=== PATIENT | female | born 1965 | race Caucasian/White ===

== ENCOUNTER 2018-06-20 08:41 | Outpatient (CLI) | payer OTHER ==
--- NOTE | 2018-06-20 09:54 | MRI ---
MRI Lumbar Spine Noncontrast: HISTORY: Pain COMPARISON: 06/25/2015 FINDINGS: Conus medullaris is normal in morphology and terminates at the L1 level. There is multilevel mild bilateral degenerative facet hypertrophy. L1-2:Mild disc bulge without significant stenosis L2-3:Broad-based disc bulge with mild narrowing of central canal. Neural foramina are patent L3-4:Mild central canal stenosis due to broad-based disc osteophyte. Mild bilateral neural foraminal narrowing L4-5:Moderate central canal stenosis due to broad-based disc osteophyte, and asymmetric prominence of the left ligamentum flavum. This produces impingement of the traversing left L5 nerve root. Mild right and moderate left neural foraminal narrowing L5-S1:Large disc protrusion of the left foramina through right subarticular zone is present with mode rate stenosis of the terminal thecal sac as well as impingement of the traversing left S1 nerve root and crowding of the traversing right S1 nerve root. There is [id number] right and moderate left neural foraminal stenosis which does result in mass effect upon the left L5 nerve root. IMPRESSION: Multilevel degenerative change throughout the lumbar spine, which is most pronounced at L5-S1 due to a large disc protrusion. Transcribed Date/Time: 06/20/2018 10:50 AM
== END 2018-06-20 08:42 | disposition home or self-care (01) ==
LOC: TBSIIMAG 08:41
PROVIDERS: ATTEND Neurological Surgery
DX: M48.062 Spinal stenosis, lumbar region with neurogenic claudication (principal); M47.817 Spondylosis without myelopathy or radiculopathy, lumbosacral region; M51.27 Other intervertebral disc displacement, lumbosacral region
CPT/HCPCS: 72148

== ENCOUNTER 2018-08-11 05:40 | Day surgery (SDC) | payer OTHER ==
[2018-08-10 10:27] VITALS: BMI 28.3
[2018-08-11] MEDS ORDERED: Bupivacaine HCl 0.5%/Epinephrine 1:200,000/PF 30 ml Vial ONE (06:19)
[2018-08-11] MEDS ORDERED: Thrombin 5000 UNITS/5 ML VIAL ONE (06:19)
[2018-08-11] MEDS ORDERED: Levofloxacin 500 mg/D5W 100 ml Premix Bag ONE (06:35)
[2018-08-11] MEDS ORDERED: Clindamycin/D5W 900 mg/50 ml Premix Bag ONE (06:35)
[2018-08-11] MEDS ORDERED: Famotidine/PF 20 mg/2ml Vial ONE (06:56)
[2018-08-11] MEDS ORDERED: Midazolam HCl 2 mg/2 ml Vial ONE (06:56)
[2018-08-11] MEDS ORDERED: Fentanyl 100 MCG/2 ML VIAL ONE ×2 (06:56→12:05)
[2018-08-11] MEDS ORDERED: Scopolamine 1.5 mg/72 hour Patch ONE (08:06)
[2018-08-11] MEDS ORDERED: SUGAMMADEX SODIUM 500 MG/5 ML VIAL ONE (10:25)
[2018-08-11] MEDS ORDERED: Sodium Chloride For Inhalation 0.9% 3 ML NEB ONE (10:25)
--- NOTE | 2018-08-11 11:30 | OP ---
DATE OF PROCEDURE: 08/11/2018 [employer]: Milind Ty PA-C INDICATION: Pain. DIAGNOSIS: Lumbar radiculopathy. PROCEDURES PERFORMED: Left L5-S1 hemilaminectomy, medial facetectomy, and diskectomy. ANESTHESIA: General. DESCRIPTION OF PROCEDURE: The patient was brought into the operating room and placed under general anesthesia. She was flipped from the supine to prone position on the operating room table. A linear incision was planned over the L5-S1 segment. After prepping and draping and after an appropriate preoperative pause, the incision was created. The soft tissues were swept left of midline. A self-retaining retractor was placed in the wound for optimal exposure. After confirming the appropriate level with C-arm fluoroscopy, a high-speed cutting drill bit as well as 2, 3, and 4 mm Kerrisons were used to perform a laminectomy along the inferior aspect of L5 and superior aspect of S1. The laminectomy was extended laterally to encompass the medial aspect of the facet joint. There was fairly significant lateral recess crowding in part due the superior articulating facet of S1, but also due to disk osteophyte complex emanating from the disk space. Soft tissue was removed including soft tissue disk component. There was a component of the osteophytic disk space that could not be removed, but the nerve root was decompressed around it. The wound was irrigated. Hemostasis was maintained throughout. The wound was then closed in anatomic layers and a pressure dressing was applied. There were no known procedural complications. Job ID: [id number]
[2018-08-11] MEDS ORDERED: HYDROcodone/Acetaminophen 5/325 mg Tablet ONE (14:12)
== END 2018-08-11 15:05 | disposition home or self-care (01) ==
LOC: SDC 05:40
PROVIDERS: ATTEND Neurological Surgery
PROC: 0SB20ZZ Excision of Lumbar Vertebral Disc, Open Approach (ICD-10-PCS; principal; 2018-08-11)
DX: M48.061 Spinal stenosis, lumbar region without neurogenic claudication (principal); M54.16 Radiculopathy, lumbar region; M25.78 Osteophyte, vertebrae
CPT/HCPCS: 76000; J0131; J0670; J1956; J2250; J3010; J3490; S0028

== ENCOUNTER 2019-01-16 14:32 | Outpatient (CLI) | payer OTHER ==
--- NOTE | 2019-01-16 15:05 | RAD ---
EXAM: XR Cerv Sp Ap Lat STANDARD PROVIDED CLINICAL HISTORY: Follow-up post surgical changes cervical spine. Cervical radiculopathy COMPARISON: None FINDINGS: Postsurgical changes related to anterior cervical fusion of the cervical spine are noted. An anterior plate and screws transfix the C4-C7 levels. No hardware complication is seen. A large prominent anterior osteophyte is seen involving the C3 vertebral body with anterior osteophyte formation seen a t the C7-T1 level.. No fracture or subluxation is seen involving the cervical spine. There is posterior osteophyte formation seen at the level of the C5 vertebral body. Prevertebral soft tissues are within normal limits. IMPRESSION: Postsurgical changes related to anterior cervical fusion of C4-C7 levels. Prominent osteophytes are s een anterior to the C3-4 and C7-T1 levels.
== END 2019-01-16 14:33 | disposition home or self-care (01) ==
LOC: TBSIIMAG 14:32
PROVIDERS: ATTEND Neurological Surgery
DX: M54.12 Radiculopathy, cervical region (principal); Z98.1 Arthrodesis status
CPT/HCPCS: 72040

== ENCOUNTER 2019-01-22 13:03 | Outpatient (CLI) | payer OTHER ==
--- NOTE | 2019-01-22 13:49 | RAD ---
XR Foot Lt 3 View STANDARD HISTORY: left foot pain And swelling FINDINGS: No bony destruction or dislocation is identified. There is a linear lucency in the shaft of the mid-d istal phalanx of the little toe which may either represent an artifact or a fracture. Clinical correlation is recommended.
== END 2019-01-22 13:04 | disposition home or self-care (01) ==
LOC: TBSIIMAG 13:03
PROVIDERS: ATTEND Neurological Surgery
DX: M79.672 Pain in left foot (principal)

== ENCOUNTER 2019-04-26 09:50 | Outpatient (CLI) | payer OTHER ==
--- NOTE | 2019-04-26 13:29 | MRI ---
MRI of thecervical spine with and without contrast: 04/26/2019 COMPARISON:06/26/2015 HISTORY:Cervical radiculopathy, prior cervical fusion TECHNIQUE: Multiplanar multisequence MR imaging of thecervical spine with and without contrast Findings:The sagittal STIR imaging demonstrates no focal area of osseous marrow edema. There is a foc al area of T2 hyperintensity involving the inferior posterior aspect of the C4 vertebral body measuring 4 mm, likely on the basis of degenerative subchondral cyst formation. Similar smaller focus of increased T2 signal is seen involving the superior posterior corner of the C6 vertebral body. C2-3: Facet and uncovertebral osteophyte formation on the left leads to moderate left neural foramina l stenosis. No significant central canal or right neural foraminal stenosis. C3-4: There is disc space narrowing with a disc osteophyte complex partially effacing the ventral the natasha sac and leading to a mild degree of central canal stenosis. Bilateral facet and uncovertebral osteophyte formation noted with moderate bilateral neural foraminal stenosis, left greater than right . There is multilevel anterior discectomy and fusion hardware including the C4-5, C5-6, and C6-7 levels . C4-5: Disc space narrowing with disc desiccation and disc bulge present. Superimposed small central d isc protrusion. This effaces the ventral aspect of the thecal sac and abuts the ventral aspect of the cord with a mild/moderate degree of central canal stenosis, markedly improved when compared to th e prior exam. Facet and uncovertebral osteophyte formation noted bilaterally with mild/moderate left neural foraminal stenosis. No significant central canal stenosis. C5-6: Mild posterior osteophyte with no associated central canal stenosis. Facet and uncovertebral os teophyte formation noted bilaterally with mild bilateral neural foraminal stenosis. C6-7: Disc desiccation and mild disc bulge with no significant central canal stenosis. Mild bilateral neural foraminal stenosis on the basis of facet hypertrophy. C7-T1: No significant central canal or neural foraminal stenosis. The postcontrast imaging demonstrates no abnormal enhancement within the cervical spine. No focal area of abnormal signal intensity is identified within the cervical cord. IMPRESSION:Postoperative and degenerative changes within the cervical spine as detailed above.
[2019-04-26] MEDS ORDERED: Magnevist 469MG/ML 20 ML VIAL ONE (14:47)
== END 2019-04-26 09:51 | disposition home or self-care (01) ==
LOC: TBSIIMAG 09:50
PROVIDERS: ATTEND Neurological Surgery
DX: M47.22 Other spondylosis with radiculopathy, cervical region (principal); Z98.890 Other specified postprocedural states
CPT/HCPCS: 72156; A9579

== ENCOUNTER 2023-01-12 13:23 | Outpatient (CLI) | payer MEDICARE, OTHER | END 2023-01-12 13:24 | disposition home or self-care (01) | LOC: CT 13:23 | PROVIDERS: ATTEND Specialist | DX: J38.7 Other diseases of larynx (principal); R59.0 Localized enlarged lymph nodes; Z98.1 Arthrodesis status | CPT/HCPCS: 70491 ==